=== PATIENT | female | born 1995 | race Caucasian/White ===

== ENCOUNTER → 2018-12-30 | Outpatient (CLI) | payer OTHER ==
--- NOTE | 2018-12-30 15:49 | REP ---
MAXILLOFACIAL CT WITHOUT CONTRAST: HISTORY: Chronic maxillary sinusitis. Bilateral Libby cells are present. Mucosal thickening is present in the right sphenoid sinus. There is almost complete opacification of the right sphenoid sinus. Minimal mucosal thickening is present in the right ethmoid sinus. The remaining sinuses are clear. The osteomeatal units are patent. The middle and inferior nasal turbinates are partially paradoxical. There is minimal deviation of the nasal septum to the right. A spur is present arising from the left side of the nasal septum. This spur abuts the left middle and inferior nasal turbinates. The cribriform plate, medial graham of the orbits, and optic canals are intact. The carotid canals form a segment of the posterolateral graham of the sphenoid sinus. IMPRESSION: Sinus mucosal thickening as described above. Electronically Signed by Charlie Holliday MD 12/30/2018 03:52 P
== END ==
LOC: M RAD 14:25
PROVIDERS: ATTEND Otolaryngology
DX: Z87.09 Personal history of other diseases of the respiratory system (principal)

== ENCOUNTER → 2019-03-05 | Outpatient (CLI) | payer OTHER ==
--- NOTE | 2019-03-05 09:31 | REP ---
MAXILLOFACIAL CT STUDY: HISTORY: Chronic sphenoidal sinusitis. Comparison CT exam December [address] FINDINGS: Moderate mucosal thickening affecting the right side of the sphenoid sinus. The right sphenoid sinus is a little less opacified than it was December 30, 2018. The left sphenoid air cell is normal and aerated. The maxillary sinuses are clear. Ethmoid sinuses and frontal sinuses are clear. Mastoid aeration is normal and symmetric. There is no evidence of intraorbital abnormality. Visualized intracranial structures are unremarkable. The nasal turbinate soft tissues are normal and symmetric. There is a midline nasal septum. Ostiomeatal complexes are widely patent. Libby cells are visible bilaterally. IMPRESSION: Moderate mucosal thickening affecting the right side of the sphenoid sinus slightly improved from the prior study. Electronically Signed by Jose Platt MD 03/05/2019 01:00 P
== END ==
LOC: M RAD 07:58
PROVIDERS: ATTEND Otolaryngology
DX: J32.3 Chronic sphenoidal sinusitis (principal)

== ENCOUNTER 2019-05-12 08:45 | Day surgery (SDC) | payer OTHER ==
[~2019-05-12] VITALS: Ht 175.3 cm; Wt 72.1 kg
[~2019-05-12 08:45] MED LIST: FLON1SPR; LR 1,000 ML IV ONE; dexameTHASONE 4 MG/ML 1ML VIAL (J1100) IV ONE
[2019-05-12 09:26] LABS: URINE PREG TEST NEGATIVE (NEGATIVE)
[2019-05-12] MEDS ORDERED: propofoL 200 MG/20 ML VIAL As Ordered ONE (09:57)
[2019-05-12] MEDS ORDERED: ROCURONIUM BROMIDE 50 MG/5 ML VIAL As Ordered ONE (09:57)
[2019-05-12] MEDS ORDERED: LIDOCAINE 2% INJ 100 MG/5 ML SDV (FOR ANES.) As Ordered ONE (09:57)
[2019-05-12] MEDS ORDERED: ONDANSETRON 4MG/2ML VIAL (J2405) As Ordered ONE ×2 (09:58→15:16)
[2019-05-12] MEDS ORDERED: fentaNYL 250 MCG/5 ML INJECTION (J3010) As Ordered ONE (09:58)
[2019-05-12] MEDS ORDERED: dexameTHASONE 4 MG/ML 1ML VIAL (J1100) As Ordered ONE (09:58)
[2019-05-12] MEDS ORDERED: MIDAZOLAM INJ 2 MG/2 ML VIAL (J2250) As Ordered ONE (09:58)
[2019-05-12] MEDS ORDERED: EPINEPHrine 1MG/ML INJ 30ML MD-VIAL As Ordered ONE (12:45)
[2019-05-12] MEDS ORDERED: SODIUM CHLORIDE 0.9% NASAL GEL 15GM (AYR) As Ordered ONE (12:45)
[2019-05-12] MEDS ORDERED: LIDOCAINE W/EPINEPHRINE 1% 20ML VIAL As Ordered ONE (12:45)
[2019-05-12] MEDS ORDERED: METHYLENE BLUE 0.5% (5MG/ML) 10 ML AMP (PROVAYBLUE)(Q9968 PER 1MG) As Ordered ONE (12:45)
[2019-05-12] MEDS ORDERED: LACRILUBE (AKWA TEARS) OPHTH OINT 3.5 GM As Ordered ONE (13:21)
[2019-05-12] MEDS ORDERED: SUGAMMADEX SODIUM 500 MG/5 ML VIAL (BRIDION) As Ordered ONE (13:31)
[2019-05-12] MEDS ORDERED: ACETAMINOPHEN 1000MG 100ML IV BTL (OFIRMEV) (J0131 PER 10MG) As Ordered ONE (13:32)
[2019-05-12] MEDS: ONDANSETRON 4MG/2ML VIAL (J2405) IV PRN ×2 (15:19→15:21)
[2019-05-12] MEDS ORDERED: fentaNYL 100 MCG/2 ML INJECTION (J3010) IV PRN (15:30)
[2019-05-12] MEDS ORDERED: LR 1,000 ML IV SCH ×2 (15:30)
[2019-05-12] MEDS ORDERED: METOCLOPRAMIDE INJ 10MG/2ML VIAL (J2765) IV PRN (15:30)
[2019-05-12] MEDS ORDERED: oxyCODONE 5MG TAB PO PRN (15:30)
[2019-05-12 15:45] VITALS: BP 131/83
--- NOTE | 2019-05-22 07:52 | RO ---
DATE OF OPERATION: 05/12/2019 PREOPERATIVE DIAGNOSIS: chronic right sphenoiditis and headache POSTOPERATIVE DIAGNOSIS: same PROCEDURE PERFORMED: 1. Endoscopic right sphenoidotomy. 2. Stereotactic surgery using Brainlab. SURGEON: Chung Mario MD [employer]ISSI[employer] CHECKOUT TECHNICIAN: ANESTHESIA: General. CLINICAL PREAMBLE: This 23-year-old woman presented to the office complaining of chronic right-sided headache. CT scan of the sinuses revealed evidence of chronic right sphenoid sinusitis. Management options including surgery listed above have been discussed. Patient understood and consented to the procedure. DESCRIPTION OF PROCEDURE: Oral narration: Patient was identified in preoperative holding and was brought to the operating room in stable condition. In the supine position on the operating room table, the patient received general anesthesia followed by oral endotracheal intubation without incident. Patient prepped and draped in the usual fashion for the procedure. Both eyes were then lubricated and protected using Tegaderm. The headband for the Brainlab was successfully attached to the forehead. The surface matching was obtained between the Brainlab system and patient's anatomy. Both sides of nasal cavity were packed using pledgets soaked in 1:1000 epinephrine. After a waiting period, the pledgets were removed. Using 0-degree rigid nasal endoscope, the rostrum of the right sphenoid sinus was successfully identified with positive confirmation on the Brainlab system as well. The right sphenoid os was successfully identified and entered into the right sphenoid sinus cavity. A sphenoidotomy was then successfully performed using the Kerrison forceps. The right sphenoid sinus cavity was then copiously irrigated with warm saline solution. Clear mucosa inside the right sphenoid sinus was visualized at the end of the case. The Propel Contour stent was successfully implanted into the right sphenoid os area. At the end of procedure, sponge and instrument counts were correct. No complications were encountered. Estimated blood loss was less than 20 mL. General anesthesia was reversed, and patient was extubated and brought to recovery room in stable condition. In recovery area, patient exhibited full and symmetrical extraocular motion with no evidence of periorbital ecchymosis. MTDD
== END 2019-05-12 16:15 | disposition home or self-care (01) ==
LOC: M SDC 08:45
PROVIDERS: ATTEND Otolaryngology
DX: J32.3 Chronic sphenoidal sinusitis (principal); L40.8 Other psoriasis; G43.909 Migraine, unspecified, not intractable, without status migrainosus; Q07.00 Arnold-Chiari syndrome without spina bifida or hydrocephalus
CPT/HCPCS: 31288; 84703; 88305; J0131; J1100; J2250; J2405; J3010; Q9968